=== PATIENT | male | born 1990 | race Caucasian/White ===

== ENCOUNTER 2017-03-16 21:43 | Emergency (ER) | payer MEDICARE, MEDICAID ==
[2017-03-16] MEDS ORDERED: Ketorolac Tromethamine 30 MG/ML VIAL ONE ×2 (23:03→23:05)
== END 2017-03-16 23:26 | disposition home or self-care (01) ==
LOC: ERS 21:43
DX: H65.91 Unspecified nonsuppurative otitis media, right ear (principal); H66.92 Otitis media, unspecified, left ear; K02.9 Dental caries, unspecified; K03.81 Cracked tooth
CPT/HCPCS: 96372; J1885

== ENCOUNTER 2017-05-14 20:29 | Emergency (ER) | payer MEDICARE, MEDICAID ==
[2017-05-14] MEDS ORDERED: Ketorolac Tromethamine 60 MG/2 ML VIAL ONE (21:41)
--- NOTE | 2017-05-14 22:26 | CT ---
CT HEAD WITHOUT CONTRAST: 05/14/17 Multiple axial tomograms obtained through the head without IV enhancement. HISTORY: Headache. There is asymmetry of the anterior horn of the right lateral ventricle. There is suggestion of an int raventricular cyst at this location which is producing some shift of the septum pellucidum to the lef t. This cystic area is difficult to define on CT but appears to measure in the 1.7 cm range. Ventricles otherwise have normal size and position. There is no intraparenchymal mass or hemorrhage. The sinuses and mastoids are well aerated. 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 This may be the etiology for patient's headache. Suggest a followup elective MRI exam to better define this abnormality. POS: ELIZA
== END 2017-05-14 22:43 | disposition home or self-care (01) ==
LOC: ERS 20:29
DX: R51 Headache (principal); F17.210 Nicotine dependence, cigarettes, uncomplicated; G43.909 Migraine, unspecified, not intractable, without status migrainosus
CPT/HCPCS: 70450; 96372; 99406; J1885

== ENCOUNTER 2017-06-04 11:52 | Outpatient (CLI) | payer MEDICARE, MEDICAID ==
--- NOTE | 2017-06-04 15:12 | MRI ---
MRI BRAIN WITH AND WITHOUT CONTRAST: Date: 06/04/17 Multiplanar, multisequential imaging of brain obtained. HISTORY: Exam performed in follow-up to CT scan from 05/14/17 which showed asymmetric anterior horn on the rig ht with slight deviation of the septum pellucidum suggesting an intraventricular cyst. FINDINGS: MRI again shows asymmetry of the right lateral ventricle and slight mass effect on the septum pelluci dum with shift to the left. An intraventricular cyst is not delineated on this exam. 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 It does appear stable when compared to the MRI of 21/06. No other abnormality is seen. A focus of increased FLAIR seen in the posterior fossa on the left is d ue to flow-related artifact. IMPRESSION: Asymmetry of the anterior horn on the right with some shift of the septum pellucidum to the left is n oted. No discernible intraventricular cyst is confirmed on this exam. Findings are stable from prior MRI of 2011. No subsequent follow-up is recommended. POS: ELIZA
== END 2017-06-04 11:53 | disposition home or self-care (01) ==
LOC: MRI 11:52
PROVIDERS: ATTEND Nurse Practitioner Family
DX: G93.0 Cerebral cysts (principal); G93.89 Other specified disorders of brain
CPT/HCPCS: 70553

== ENCOUNTER 2018-08-19 11:09 | Emergency (ER) | payer MEDICARE, MEDICAID ==
--- NOTE | 2018-08-19 11:40 | RAD ---
LEFT SHOULDER THREE VIEWS: History: Shoulder pain. FINDINGS: No signs of fracture, dislocation, or other bony or soft tissue findings. IMPRESSION: Negative left shoulder. POS: ELIZA
== END 2018-08-19 12:53 | disposition home or self-care (01) ==
LOC: ERS 11:09
DX: S43.402A Unspecified sprain of left shoulder joint, initial encounter (principal); G43.909 Migraine, unspecified, not intractable, without status migrainosus; F17.210 Nicotine dependence, cigarettes, uncomplicated; X50.0XXA Overexertion from strenuous movement or load, initial encounter

== ENCOUNTER 2020-09-03 19:53 | Emergency (ER) | payer MEDICARE, MEDICAID | END 2020-09-03 21:00 | disposition home or self-care (01) | LOC: ERS 19:53 | DX: L03.113 Cellulitis of right upper limb (principal); K02.9 Dental caries, unspecified; L97.919 Non-pressure chronic ulcer of unspecified part of right lower leg with unspecified severity; B95.8 Unspecified staphylococcus as the cause of diseases classified elsewhere; F17.210 Nicotine dependence, cigarettes, uncomplicated | CPT/HCPCS: 99283 ==

== ENCOUNTER 2022-01-01 09:13 | Emergency (ER) | payer MEDICARE, MEDICAID | END 2022-01-01 10:06 | disposition home or self-care (01) | LOC: ERS 09:13 | DX: L74.0 Miliaria rubra (principal); F17.210 Nicotine dependence, cigarettes, uncomplicated | CPT/HCPCS: 99282 ==

== ENCOUNTER 2022-01-29 18:20 | Emergency (ER) | payer OTHER, MEDICARE, MEDICAID ==
[2022-01-29] MEDS ORDERED: Ondansetron PF 4 MG/2 ML Vial ONE (20:19)
[2022-01-29 20:34] LABS: Hemoglobin 18.4 g/dL (14.0-18.0); Mean Corpuscular HGB CONC 33.9 g/dL (32.0-36.0); Mean Corpuscular Hemoglobin 31.7 pg (27.0-31.0); Mean Corpuscular Volume 93.6 fL (78.0-98.0); Mean Platelet Volume 8.6 fL (7.4-10.4); Platelet Count 335 thou/uL (130-400); RBC Distribution Width 12.7 % (11.5-14.5); Red Blood Cell (RBC) Count 5.79 mill/uL (4.70-6.10); White Blood Cell (WBC) Count 27.2 thou/uL (4.8-10.8)
[2022-01-29 20:49] LABS: Band 6 % (5-11); Hypochromia SLIGHT = 6-15 cells (100X) (0-5/hpf); Lymphocytes 17 % (21-51); MDiff Complete? YES; Monocytes 17 % (0-10); Neutrophil 60 % (42-75); Platelet Morphology Comment Appears Adequate
[2022-01-29 20:52] LABS: ALT (SGPT) 54 U/L (8-55); AST (SGOT) 51 U/L (5-34); Albumin 6.2 g/dL (3.5-5.0); Alkaline Phosphatase 76 U/L (40-110); Anion Gap 25 mmol/L (10-20); BUN (Urea Nitrogen) 28 mg/dL (8.9-20.6); Bilirubin, Total 1.2 mg/dL (0.2-1.2); CK (CPK) 406 U/L (30-200); Calc. Creatinine Clearance 0 mL/min (70-130); Carbon Dioxide 19 mmol/L (22-29); Chloride 99 mmol/L (98-107); Estimated GFR 26; Globulin 4.6 g/dL (2.4-3.5); Glucose 121 mg/dL (70-105); Lipase 26 U/L (8-78); Protein, Total 10.8 g/dL (6.0-8.3); Sodium 139 mmol/L (136-145)
[2022-01-29 20:56] LABS: Calcium 12.2 mg/dL (7.8-10.44)
== END 2022-01-29 23:55 | disposition home or self-care (01) ==
LOC: ERS 18:20
DX: T67.5XXA Heat exhaustion, unspecified, initial encounter (principal); M62.82 Rhabdomyolysis; F17.210 Nicotine dependence, cigarettes, uncomplicated; X30.XXXA Exposure to excessive natural heat, initial encounter; Y92.69 Other specified industrial and construction area as the place of occurrence of the external cause
CPT/HCPCS: 36415; 80053; 82550; 83690; 85025; 96361; 96374; J2405

== ENCOUNTER 2023-01-21 14:09 | Emergency (ER) | payer MEDICARE, MEDICAID | END 2023-01-21 15:06 | disposition home or self-care (01) | LOC: ERS 14:09 | DX: R22.31 Localized swelling, mass and lump, right upper limb (principal); F17.210 Nicotine dependence, cigarettes, uncomplicated ==

== ENCOUNTER 2023-02-01 22:46 | Emergency (ER) | payer MEDICARE, MEDICAID ==
[2023-02-02] MEDS ORDERED: Proparacaine 0.5% Opth 15 ML BOT ONE (00:40)
[2023-02-02] MEDS ORDERED: Fluorescein Opthalmic Strip ONE (00:40)
[2023-02-02] MEDS ORDERED: Midazolam HCl 2 mg/2 ml Vial ONE (01:45)
[2023-02-02] MEDS ORDERED: Bupivacaine 0.25% 10 ML VIAL ONE (01:55)
[2023-02-02] MEDS ORDERED: Ciprofloxacin 0.3% Ophth Soln 2.5 ml Bottle R EYE SCH (02:15)
[2023-02-02] MEDS ORDERED: Cyclopentolate 0.5% Opth Drops 15 ML BOT EA EYE SCH (02:15)
== END 2023-02-02 02:58 | disposition home or self-care (01) ==
LOC: ERS 22:46
DX: T15.01XA Foreign body in cornea, right eye, initial encounter (principal); F17.210 Nicotine dependence, cigarettes, uncomplicated
CPT/HCPCS: 96374; J2250; S0020

== ENCOUNTER 2023-05-29 11:08 | Emergency (ER) | payer MEDICARE, MEDICAID ==
[2023-05-29] MEDS ORDERED: Fluorescein Opthalmic Strip ONE (11:22)
[2023-05-29] MEDS ORDERED: Proparacaine 0.5% Opth 15 ML BOT ONE (11:22)
== END 2023-05-29 13:00 | disposition home or self-care (01) ==
LOC: ERS 11:08
DX: S05.01XA Injury of conjunctiva and corneal abrasion without foreign body, right eye, initial encounter (principal); F17.210 Nicotine dependence, cigarettes, uncomplicated; W22.8XXA Striking against or struck by other objects, initial encounter; Y99.0 Civilian activity done for income or pay
CPT/HCPCS: 70200; 70486

== ENCOUNTER 2023-12-07 10:47 | Emergency (ER) | payer MEDICAID, MEDICARE | END 2023-12-07 12:40 | disposition home or self-care (01) | LOC: ERS 10:47 | DX: H60.92 Unspecified otitis externa, left ear (principal); H66.92 Otitis media, unspecified, left ear; F17.210 Nicotine dependence, cigarettes, uncomplicated | CPT/HCPCS: 99282 ==

== ENCOUNTER 2024-05-16 04:58 | Emergency (ER) | payer MEDICARE ==
[2024-05-16] MEDS ORDERED: Proparacaine 0.5% Opth 15 ML BOT ONE (05:37)
[2024-05-16] MEDS ORDERED: Fluorescein Opthalmic Strip ONE (05:37)
== END 2024-05-16 06:58 | disposition home or self-care (01) ==
LOC: ERS 04:58
DX: T15.02XA Foreign body in cornea, left eye, initial encounter (principal); F17.210 Nicotine dependence, cigarettes, uncomplicated; W26.8XXA Contact with other sharp object(s), not elsewhere classified, initial encounter
CPT/HCPCS: 99283